=== PATIENT | female | born 1940 | race Caucasian/White ===

== ENCOUNTER 2017-07-18 10:24 | Emergency (ER) | payer MEDICARE, OTHER ==
[~2017-07-18] VITALS: Ht 154.9 cm; Wt 70.3 kg
[~2017-07-18 10:24] MED LIST: ALB6.7R INH; ALBU8.5H12 IH; ALPR-429 PO; AMLO-106 PO; ATOR40TA24 PO; ATR80PT PO; CALC1TAB32 PO; EZET10TA41 PO; FLUT1DIS28 IH; HYOS-49 SL; LORA10CA3 PO; MESA800T3 PO; MONT10TA PO; MONT10TA4 PO; MULT-865 PO; MULT-912 PO; NAPR220C12 PO; PANT40TA65 PO; RANI-324 PO
--- NOTE | 2017-07-18 10:32 | ER Report ---
History and Physical Time Seen By MD: 10:32 HPI/ROS CC: Shortness of breath cough HPI: 77-year-old female with a past medical history of asthma, hypoxia, GERD, Perla 's esophagus presents to the emergency department per POV. Patient has had decreased SaO2 in the 90-92% range on room air is 3 months. She is increased her Advair and rescue inhaler up to 6 times per day. Over the last weeks she has progressively had increased with green mucus productive cough. No blood. She has traveled to [place] and has had more exposure to the public during the [place] season. She initially had fever chills but that is slightly resolved. She denies any nausea vomiting, palpitations, chest pressure but definitely has increased shortness of breath. She does have reflux. She is not seeing a air and water tester. I discussed with her that she is probably having silent aspiration during the night and needs to follow-up with a air and water tester. She will be acquiring a new PCP, Jose, as her PCP is retiring. I discussed with her in length due to her decreasing pulmonary function over the last year she needs to have further evaluation by pulmonology. She just had an echo which showed. OVERALL IMPRESSION: 1. Normal stress echocardiograph with normal left ventricular function systolically at rest with hyperdynamic response to exercise and low probability of ischemia. 2. Grade 1/4 decrease in diastolic function. 3. Trace of mitral insufficiency. 4. A mild amount of tricuspid insufficiency with normal right ventricular systolic pressures at 31 mmHg. Patient upon and in agreement. ROS: 12 point review of systems essentially negative other than what's mentioned in history of present illness. NURSES AND OLD MEDICAL RECORDS: Reviewed PMH: Reviewed SURGICAL HX: Reviewed FAMILY HX: Noncontributory SOCIAL HX: She is lives at home denies smoking alcohol or illicit drugs. VITAL SIGNS: Reviewed CONSTITUTIONAL: 77-year-old female in moderate distress PHYSICAL EXAM: HEENT: Pupils equal round reactive to light and accommodate, EOMI, tympanic membranes pearly white umbo present with good light reflex. Lips dry mucous membranes moist gums nonbleeding uvula midline and rises equally with phonation, oropharynx noninjected, teeth intact. NECK: Neck supple, thyroid not appreciated, anterior and posterior cervical lymphadenopathy not appreciated. Trachea midline and rises equally with phonation. CARDIAC: S1-S2 2/6 systolic murmur 2nd intercostal space right sternal border regular rate rhythm no rubs or gallops. LUNGS: Lungs decreased air movement with inspiratory wheezes with rhonchi bilaterally posteriorly in all persaud. ABDOMEN: Abdomen soft, nondistended, bowel sounds active in all 4 quadrants, no bruits noted, no CVA tenderness. MUSCULOSKELETAL: Strength 5 out of 5 x 4 extremities, no deformities noted. NEUROLOGIC: Patient alert and oriented by 3 Allergies: Coded Allergies: Penicillins (Verified Allergy, Severe, GIVEN IN CHILDHOOD WITH REACTION, BUT PT DOESN'T KNOW WHAT., 05/06/16) Sulfa (Sulfonamide Antibiotics) (Verified Allergy, Severe, HALLUCINATIONS , 05/06/16) shellfish derived (Verified Allergy, Severe, ANAPHYLAXIS, 05/06/16) Uncoded Allergies: HAYFEVER (Allergy, Mild, SINUS CONGESTION, 12/26/14) Home Meds Active Scripts Ipratropium/Albuterol Sulfate (IPRAT-ALBUT 0.5-3(2.5) MG/3 ML) 3 Ml Ampul.neb, 3 ML IH BID Y for SHORTNESS OF BREATH, #1 BOX 1 Refill Prov:LORA FAUST MD 07/18/17 Azithromycin (ZITHROMAX) 250 Mg Tablet, 0 PO QDAY, #6 TAB Prov:LORA FAUST MD 07/18/17 Prednisone 10 Mg Tab (PREDNISONE 10 MG TAB) 10 Mg Tablet, 50 MG PO QDAY, #47 TAB 50 mg by mouth daily for 3 days then 40 mg by mouth daily for 3 days then 30 mg by mouth daily for 3 days then 20 mg by mouth daily for 3 days then 10 mg by mouth daily for 3 days then 5 mg by mouth daily for 3 days. Prov:LORA FAUST MD 07/18/17 Fluticasone/Salmeterol (ADVAIR 250-50 DISKUS) 1 Each Disk.w.dev, 1 EACH IH BID, #3 INH 9 Refills Prov:VIRGINIA URENA MD 06/21/17 Albuterol Sulfate (PROVENTIL HFA) 6.7 Gm Inh, 108 MCG INH PRN for 90 Days, #2 INH 9 Refills 2 puffs every 6 hours prn sob Prov:VIRGINIA URENA MD 06/21/17 Pantoprazole Sodium (PANTOPRAZOLE SODIUM) 40 Mg Tablet.dr, 40 MG PO QDAY, #90 TAB.SR 0 Refills Prov:VIRGINIA URENA MD 06/21/17 Montelukast Sodium (SINGULAIR) 10 Mg Tablet, 1 TAB PO QDAY for 90 Days, #90 TAB 3 Refills Prov:VIRGINIA URENA MD 06/21/17 Ezetimibe (ZETIA) 10 Mg Tablet, 1 TAB PO QDAY, #90 TAB 4 Refills Prov:VIRGINIA URENA MD 05/26/17 Reported Medications Multivitamin (DAILY MULTIPLE VITAMIN) 1 Each Tablet, 1 TAB PO DAILY 02/01/17 Amlodipine Besylate/Benazepril (LOTREL 10-40 MG CAPSULE) 1 Each Capsule, 1 EACH PO QDAY, CAPSULE 02/01/17 Atorvastatin Calcium (LIPITOR) 40 Mg Tablet, 80 MG PO QDAY, TAB 02/01/17 Loratadine (CLARITIN) 10 Mg Capsule, 10 MG PO QDAY, CAPSULE 02/01/17 Mesalamine (ASACOL HD) 800 Mg Tablet., 800 MG PO bid to qid 02/01/17 Discontinued Reported Medications Calcium Carb & Cit/Vitamin D3 (CALCIUM + D3 ER TABLET) 1 Each Tablet.er, 1300 MG PO DAILY 02/01/17 Hx Smoking: No Smoking Status: Never Smoker Exposure to Second Hand Smoke?: No Hx Alcohol Use: Yes Constitutional Vital Sign - Last 24 Hours 07/18/17 07/18/17 07/18/17 07/18/17 10:24 10:29 10:35 10:39 Temp 99.2 Pulse ??? 104 ??? Resp 18 15 B/P (MAP) 138/81 138/81 (100) Pulse Ox 91 91 O2 Delivery Room Air 07/18/17 07/18/17 07/18/17 07/18/17 10:54 11:00 11:09 11:30 Pulse 91 87 Resp 17 14 B/P (MAP) 114/72 (86) 110/80 (90) Pulse Ox 90 89 07/18/17 07/18/17 07/18/17 07/18/17 11:39 11:54 12:00 12:00 Pulse 83 81 88 Resp 21 21 16 Pulse Ox 90 89 O2 Delivery Room Air 07/18/17 07/18/17 07/18/17 07/18/17 12:08 12:38 12:38 12:44 Pulse 82 89 96 Resp 16 16 16 Pulse Ox 89 O2 Delivery Room Air 07/18/17 07/18/17 13:18 13:18 Pulse 98 Resp 16 Pulse Ox 89 O2 Delivery Room Air Medical Decision Making Data Points Result Diagram: 07/18/17 1040 07/18/17 1040 Laboratory Hematology Test 07/18/17 10:40 07/18/17 11:00 Red Blood Count 5.17 M/uL (4.17-5.56) Mean Corpuscular Volume 89.6 fL (80.0-96.0) Mean Corpuscular Hemoglobin 30.9 pg (26.0-33.0) Mean Corpuscular Hemoglobin Concent 34.5 g/dL (32.0-36.0) Red Cell Distribution Width 13.5 % (11.5-14.5) Mean Platelet Volume 9.7 fL (7.2-11.1) Neutrophils (%) (Auto) 64.6 % (39.4-72.5) Lymphocytes (%) (Auto) 14.2 % (17.6-49.6) Monocytes (%) (Auto) 18.5 % (4.1-12.4) Eosinophils (%) (Auto) 1.5 % (0.4-6.7) Basophils (%) (Auto) 1.2 % (0.3-1.4) Nucleated RBC Relative Count (auto) 0.0 /100WBC Neutrophils # (Auto) 5.4 K/uL (2.0-7.4) Lymphocytes # (Auto) 1.2 K/uL (1.3-3.6) Monocytes # (Auto) 1.5 K/uL (0.3-1.0) Eosinophils # (Auto) 0.1 K/uL (0.0-0.5) Basophils # (Auto) 0.1 K/uL (0.0-0.1) Nucleated RBC Absolute Count (auto) 0.00 K/uL Sodium Level 138 mmol/L (137-145) Potassium Level 4.2 mmol/L (3.5-5.0) Chloride Level 103 mmol/L (98-107) Carbon Dioxide Level 23 mmol/L (22-31) Blood Urea Nitrogen 10 mg/dl (7-18) Creatinine 0.70 mg/dl (0.52-1.04) Glomerular Filtration Rate Calc > 60.0 Random Glucose 88 mg/dl (75-110) Calcium Level 9.7 mg/dl (8.4-10.2) Total Bilirubin 1.1 mg/dl (0.2-1.3) Aspartate Amino Transf (AST/SGOT) 35 U/L (0-35) Alanine Aminotransferase (ALT/SGPT) 47 U/L (0-56) Alkaline Phosphatase 98 U/L (0-126) Troponin I < 0.012 ng/ml B-Type Natriuretic Peptide 34 pg/ml (0-100) Total Protein 7.0 gm/dl (6.3-8.2) Albumin 4.1 g/dl (3.5-5.0) Influenza Type A Antigen Negative (NEGATIVE) Influenza Type B Antigen Negative (NEGATIVE) Chemistry Test 07/18/17 10:40 07/18/17 11:00 White Blood Count 8.3 k/uL (4.5-11.0) Red Blood Count 5.17 M/uL (4.17-5.56) Hemoglobin 16.0 g/dL (12.0-16.0) Hematocrit 46.3 % (34.0-47.0) Mean Corpuscular Volume 89.6 fL (80.0-96.0) Mean Corpuscular Hemoglobin 30.9 pg (26.0-33.0) Mean Corpuscular Hemoglobin Concent 34.5 g/dL (32.0-36.0) Red Cell Distribution Width 13.5 % (11.5-14.5) Platelet Count 228 K/uL (150-450) Mean Platelet Volume 9.7 fL (7.2-11.1) Neutrophils (%) (Auto) 64.6 % (39.4-72.5) Lymphocytes (%) (Auto) 14.2 % (17.6-49.6) Monocytes (%) (Auto) 18.5 % (4.1-12.4) Eosinophils (%) (Auto) 1.5 % (0.4-6.7) Basophils (%) (Auto) 1.2 % (0.3-1.4) Nucleated RBC Relative Count (auto) 0.0 /100WBC Neutrophils # (Auto) 5.4 K/uL (2.0-7.4) Lymphocytes # (Auto) 1.2 K/uL (1.3-3.6) Monocytes # (Auto) 1.5 K/uL (0.3-1.0) Eosinophils # (Auto) 0.1 K/uL (0.0-0.5) Basophils # (Auto) 0.1 K/uL (0.0-0.1) Nucleated RBC Absolute Count (auto) 0.00 K/uL Glomerular Filtration Rate Calc > 60.0 Calcium Level 9.7 mg/dl (8.4-10.2) Total Bilirubin 1.1 mg/dl (0.2-1.3) Aspartate Amino Transf (AST/SGOT) 35 U/L (0-35) Alanine Aminotransferase (ALT/SGPT) 47 U/L (0-56) Alkaline Phosphatase 98 U/L (0-126) Troponin I < 0.012 ng/ml B-Type Natriuretic Peptide 34 pg/ml (0-100) Total Protein 7.0 gm/dl (6.3-8.2) Albumin 4.1 g/dl (3.5-5.0) Influenza Type A Antigen Negative (NEGATIVE) Influenza Type B Antigen Negative (NEGATIVE) EKG/Imaging EKG Interpretation Normal sinus rhythm, ventricular rate 90 bpm, FL interval 136 ms, QRS duration 86 ms, QT 358 ms, QTC [address] chest shows no acute pathology. ED Course/Re-evaluation ED Course Patient received DuoNeb treatment with much improvement and also IV Solu- Medrol. CT chest did not show any acute pathology. Reviewing echocardiogram this past month as showing right heart strain. I discussed in length with the patient to follow up both with pulmonary for further evaluation of her pulmonary pathology and also for possible aspiration. Patient will be receiving home DuoNeb treatments with nebulizer. Patient has been with a CO2 of 90-92% but this is her baseline for the last 4-6 months. Patient will not be placed on oxygen at home but will follow up with pulmonology for that evaluation. Patient due to her fragile pulmonary status placed on Descalating dose of steroids and Zithromax. Patient dependent edema. Patient will be given home nebulizer with DuoNeb treatments twice a day when necessary. Re-evaluation Asthma exacerbation, pneumonia, aspiration. Decision to Disposition Date: Jul 18, 2017 Decision to Disposition Time: 13:15 Depart Departure Latest Vital Signs Vital Signs Date Time Temp Pulse Resp B/P (MAP) Pulse Ox O2 Delivery O2 Flow Rate FiO2 07/18/17 13:18 89 Room Air 07/18/17 13:18 98 16 07/18/17 11:30 110/80 (90) 07/18/17 10:29 99.2 Impression: Primary Impression: GERD (gastroesophageal reflux disease) Additional Impressions: Aspiration into airway Hypoxia Condition: Improved Disposition: HOME OR SELF-CARE Referrals: VIRGINIA URENA MD (PCP) New Scripts Ipratropium/Albuterol Sulfate (IPRAT-ALBUT 0.5-3(2.5) MG/3 ML) 3 Ml Ampul.neb 3 ML IH BID Y for SHORTNESS OF BREATH, #1 BOX 1 Refill Prov: LORA FAUST MD 07/18/17 Azithromycin (ZITHROMAX) 250 Mg Tablet 0 PO QDAY, #6 TAB Prov: LORA FAUST MD 07/18/17 Prednisone 10 Mg Tab (PREDNISONE 10 MG TAB) 10 Mg Tablet 50 MG PO QDAY, #47 TAB 50 mg by mouth daily for 3 days then 40 mg by mouth daily for 3 days then 30 mg by mouth daily for 3 days then 20 mg by mouth daily for 3 days then 10 mg by mouth daily for 3 days then 5 mg by mouth daily for 3 days. Prov: LORA FAUST MD 07/18/17 Departure Forms: ER Transition Record, Home Oxygen, Nebulizer RX, Durable Medical Equipment-Oxygen: Nebulizer Reason for Use/Diagnosis: COPD Start Date of the Order: Jul 18, 2017 Route of Administration (if applicable): Other Duration Home O2 Required: 6 Duration Units: Months Room Air Oxygen Saturation: 90 Medications Reconciliation, Patient Portal Information Patient Instructions: Hypoxia (ED) Additional Instructions: Follow-up with a air and water tester as planned. He had been given a nebulizer for home treatment. Proventil this is a medication utilizing JOCELINE nebulizer. Do not use both at the same time. You also had been given an antibiotic take as directed. I and the staff wanted to thank you for allowing us to take care of your needs today in the emergency department at [facility]. We have tried to answer all of your questions and concerns. Please feel free to return to the emergency department for any further concerns or unanswered questions. Problem Qualifiers Primary Impression: GERD (gastroesophageal reflux disease) Esophagitis presence: with esophagitis Qualified Codes: K21.0 - Gastro- esophageal reflux disease with esophagitis Additional Impressions: Aspiration into airway Encounter type: initial encounter Qualified Codes: T17.908A - Unspecified foreign body in respiratory tract, part unspecified causing other injury, initial encounter LORA FAUST MD Jul 18, 2017 10:32
[2017-07-18] MEDS ORDERED: NS(*) 0.9% 1000 ML BAG 1,000 ML IV ONE (10:59)
[2017-07-18] MEDS: ALBUTEROL/IPRATROPIUM 3 ML NEB NEB SCH ×3 (11:00→13:20)
[2017-07-18] MEDS ORDERED: cefTRIAXone 1 GM VIAL IVP ONE (11:00)
[2017-07-18] MEDS ORDERED: methylPREDNIS SUCC 125 MG/2ML IVP ONE (11:00)
[2017-07-18] MEDS ORDERED: AZITHROMYCIN 250 MG TAB PO ONE (11:00)
[2017-07-18] MEDS ORDERED: IOPAMIDOL 76% 75 ML INFUS BTL 0 ML ONE (11:12)
[2017-07-18] MEDS ORDERED: NS 0.9% 50 ML VIAL 0 ML ONE (11:12)
[2017-07-18 11:19] LABS: PLATELET COUNT, AUTOMATED 228 K/uL (150-450)
--- NOTE | 2017-07-18 11:34 | EKG ---
FACILITY: [facility] PATIENT NAME: THIAGO VAUGHN : [id number] MR: [id number] V: [id number] EXAM DATE: ORDERING PHYSICIAN: LORA FAUST TECHNOLOGIST: SHELL Test Reason : SOB Blood Pressure : / mmHG Vent. Rate : 090 BPM Atrial Rate : 090 BPM P-R Int : 136 ms QRS Dur : 086 ms QT Int : 358 ms P-R-T Axes : 067 069 068 degrees QTc Int : 437 ms Normal sinus rhythm Normal ECG No previous ECGs available Confirmed by ETHAN MUNOZ ([id number]) on 07/18/2017 3:05:15 PM Referred By: GOVIND Confirmed By:ETHAN MUNOZ
--- NOTE | 2017-07-18 12:53 | RADIOLOGY IMAGING REPORT ---
FACILITY: [facility] PATIENT NAME: Candelaria Higgins : 1940 MR: [id number] V: [id number] EXAM DATE: ORDERING PHYSICIAN: LORA FAUST TECHNOLOGIST: Location: [facility] Patient: Candelaria Higgins : 1940 Visit/Account:[id number] Date of Sevice: 07/18/2017 INDICATION: Shortness of breath. DATE: 07/18/2017 12:19 PM. TECHNIQUE: CHEST W/O CONTRAST. Noncontrast axial CT imaging was performed through the chest with sagi ttal and coronal reformats. COMPARISON: None FINDINGS: No effusion, consolidation, or pneumothorax. The thyroid is incompletely imaged. No thoracic inlet adenopathy. Heart size is normal. There is prominent atherosclerosis within the LAD. Central pulmonary arteries a re mildly prominent. Extensive aortic arch atherosclerosis. No mediastinal or hilar adenopathy. Breast tissue is incompletely imaged. No acute osseous abnormality. The upper abdomen is unremarkable. IMPRESSION: No acute findings in the chest. Report Dictated By: Angelica Nicholas MD at 07/18/2017 12:19 PM Report E-Signed By: Angelica Nicholas MD at 07/18/2017 12:48 PM WSN:[id number]
[2017-07-18] MEDS ORDERED: PRED-1 PO (13:13)
[2017-07-18] MEDS ORDERED: AZIT-1 PO (13:13)
[2017-07-18] MEDS ORDERED: IPRA3AMP21 IH (13:13)
[2017-07-18 13:29] VITALS: BP 119/53
== END 2017-07-18 13:45 | disposition home or self-care (01) ==
LOC: ER 10:41
DX: K21.0 Gastro-esophageal reflux disease with esophagitis (principal); T17.908A Unspecified foreign body in respiratory tract, part unspecified causing other injury, initial encounter; R09.02 Hypoxemia
CPT/HCPCS: 71250; 83880; 84484; 85025; 87502; 93005; 94640; 96361; 96374; 96375; 99284; J0696; J2930; J7030; J7620; Q0144; 82040; 82247; 82310; 82374; 82435; 82565; 82947; 84075; 84132; 84155; 84295; 84450; 84460; 84520; J7050; Q9967

== ENCOUNTER → 2017-08-26 | Outpatient (CLI) | payer MEDICARE, OTHER ==
[~2017-08-26] MED LIST changes: +ATOR-1 PO; +AZIT-1 PO; +FLUT16SP19 NS; +IPRA3AMP21 IH; +LACT1CAP6 PO; +PRED-1 PO
== END ==
LOC: RESP 19:49
PROVIDERS: ATTEND Family Medicine
DX: G47.33 Obstructive sleep apnea (adult) (pediatric) (principal); G47.36 Sleep related hypoventilation in conditions classified elsewhere; E66.9 Obesity, unspecified

== ENCOUNTER → 2018-01-10 | Outpatient (CLI) | payer MEDICARE, OTHER ==
[~2018-01-10] MED LIST changes: +ATOR40TA69 PO; -RANI-324 PO; +RANI-366 PO
--- NOTE | 2018-01-10 17:01 | RADIOLOGY IMAGING REPORT ---
FACILITY: [facility] [place] PATIENT NAME: THIAGO VAUGHN : [id number] MR: [id number] V: [id number] EXAM DATE: ORDERING PHYSICIAN: VINNY VALENTE TECHNOLOGIST: Meliza Kevin PROCEDURE:BILATERAL DIGITAL SCREENING MAMMOGRAM WITH CAD ASSISTED INTERPRETATION & 3D TOMOSYNTHESIS COMPARISON:Prior mammograms 01/08/17, 12/27/15, 12/24/14, 12/06/13, 11/23/13, 11/22/12. INDICATIONS:SCREENING FINDINGS: Moderately heterogeneous fibroglandular tissue is seen throughout the breasts. The parenchymal pattern has remained stable allowing for difference in mammographic technique & patient positioning. There is no evidence of malignant appearing mass, malignant appearing calcifications or other secondary sign of malignancy in either breast. DIAGNOSTIC CATEGORY 1--NEGATIVE. RECOMMENDATIONS: ROUTINE MAMMOGRAM AND CLINICAL EVALUATION. IMPRESSION: BIRADS 1: Negative. No significant abnormality is seen. Dictated by: Danna Uriostegui M.D. on 01/10/2018 at 16:18 Transcribed by: THONY on 01/10/2018 at 16:22 Approved by: Danna Uriostegui M.D. on 01/10/2018 at 16:59 [facility]
== END ==
LOC: MAMO 14:26
PROVIDERS: ATTEND Family Medicine
DX: Z12.31 Encounter for screening mammogram for malignant neoplasm of breast (principal)
CPT/HCPCS: 77063; 77067

== ENCOUNTER → 2018-05-25 | Outpatient (CLI) | payer MEDICARE, OTHER ==
[~2018-05-25] MED LIST changes: +IPRA3AMP10 IH; -IPRA3AMP21 IH
[2018-05-25 10:08] LABS: PLATELET COUNT, AUTOMATED 276 K/uL (150-450)
== END ==
LOC: LAB 09:44
PROVIDERS: ATTEND Family Medicine
DX: I10 Essential (primary) hypertension (principal)
CPT/HCPCS: 36415; 82040; 82247; 82310; 82374; 82435; 82565; 82947; 84075; 84132; 84155; 84295; 84450; 84460; 84520; 85025

== ENCOUNTER 2018-06-22 01:44 | Day surgery (SDC) | payer MEDICARE, OTHER ==
[~2018-06-22] VITALS: Ht 154.9 cm; Wt 73.5 kg
[2018-06-22] MEDS ORDERED: LIDOCAINE MPF 1% 5 ML VIAL ONE (10:56)
[2018-06-22] MEDS ORDERED: PROPOFOL EMUL(*) 10MG/ML 20 ML 40 ML ONE (10:56)
[2018-06-22] MEDS ORDERED: KETAMINE HCL-NS 50 MG/5 ML SYR ONE (10:57)
[2018-06-22] MEDS ORDERED: LIDOCAINE/SOD BICARB 8.4% SYR ID ONE (11:10)
[2018-06-22] MEDS ORDERED: NORMOSOL R SOLN(*) 1000 ML BAG 1,000 ML IV PRN (11:10)
[2018-06-22 11:46] VITALS: BP 144/76
[2018-06-22 12:28] VITALS: BP 122/67
--- NOTE | 2018-06-22 12:40 | Post Operative Progress Note ---
Post Operative Progress Note Date: Jun 22, 2018 Time: 12:34 Surgeon: Elliott Bhatt MD, FACS Cut Out Press Operator: None Anesthesia: MAC Pre-Op Diagnosis: GERD with increasing symptoms h/o Perla's Esophagus Post-Op Diagnosis: Same Findings: normal duodenum 3 gastric polyps <1cm on thin stalks Z-Line at 35 cm with 1/4 circumference irregular multiple which plaques/flat polyps distal and mid-esophagus Procedure(s): EGD with multiple biopsies Description To endoscopy room. Patient asked to turn onto left side. Sedation administered. Scope passed easily into her esophagus and navigated to the 2nd portion of the duodenum. Findings above were noted. Cold forceps biopsies performed for all specimens. Multiple samples were obtained at both the GE Junction and mid-esophagus. She was taken to PACU in good condition. She will have an UGI study on Wednesday and follow-up with Dr. Lakhani next for review of her pathology and UGI. Specimen Removed:(May be N/A): 1 - Gastric Fundus Polyp 2 - Gastric Cardia Polyp 3 - Gastric Fundus Polyp #2 4 - GE Junction Biopsies 5 - Mid-Esophagus Biopsies Complications: None Fluids: 600 Estimated Blood Loss: 5ml ELLIOTT BHATT MD Jun 22, 2018 12:40
[2018-06-22 13:00] VITALS: BP 144/75
[2018-06-22 13:06] VITALS: BP 144/73
[2018-06-22 13:07] VITALS: BP 141/76
== END 2018-06-22 13:30 | disposition home or self-care (01) ==
LOC: OR 01:44
PROVIDERS: ATTEND Surgery
DX: K20.0 Eosinophilic esophagitis (principal)
CPT/HCPCS: 43239; 88305; 88313; 88344; J2001; J2704; J3490

== ENCOUNTER → 2018-06-28 | Outpatient (CLI) | payer MEDICARE, OTHER ==
[~2018-06-28] MED LIST changes: +BARIUM SULFATE 176 GM BTL PO ONE; +BARIUM SULFATE 340 GM POWD ONE
--- NOTE | 2018-06-28 14:20 | RADIOLOGY IMAGING REPORT ---
FACILITY: [facility] PATIENT NAME: Candelaria Higgins : 1940 MR: [id number] V: [id number] EXAM DATE: ORDERING PHYSICIAN: ETHAN BURGOS TECHNOLOGIST: Location: [facility] [place] Patient: Candelaria Higgins : 1940 Visit/Account:[id number] Date of Sevice: 06/28/2018 Exam type: UPPER GI SERIES W/O AIR History: Perla's esophagus, GERD, difficulty swallowing pills Comparison: November 28, 2012. Findings: Double contrast upper GI series was performed with thick and thin barium.. There is a small hiatal h ernia with a large amount of gastroesophageal reflux. No significant esophageal narrowing was identi fied and no evidence of mucosal erosion. No abnormality of the stomach or duodenal bulb was seen. T here is an incidental diverticulum projecting from the second portion of the duodenum. The fluorosco py dose area product was 806.13 micro-Bowman per meter squared IMPRESSION: 1. Small hiatal hernia with a large amount of gastroesophageal reflux. No significant esophageal na rrowing or mucosal erosion identified.. Incidental diverticulum extends from the second portion of the duodenum Report Dictated By: Danna Uriostegui MD at 06/28/2018 2:13 PM Report E-Signed By: Danna Uriostegui MD at 06/28/2018 2:17 PM WSN:[id number]
== END ==
LOC: RAD 00:31
PROVIDERS: ATTEND Surgery
DX: K44.9 Diaphragmatic hernia without obstruction or gangrene (principal); K57.10 Diverticulosis of small intestine without perforation or abscess without bleeding
CPT/HCPCS: 74240

== ENCOUNTER 2018-07-19 16:51 | Emergency (ER) | payer MEDICARE, OTHER ==
[~2018-07-19 16:51] MED LIST changes: -BARIUM SULFATE 176 GM BTL PO ONE; -BARIUM SULFATE 340 GM POWD ONE
--- NOTE | 2018-07-19 17:05 | ER Report ---
History and Physical Time Seen By MD: 17:04 (NATALIIA GUERRA MD) HPI/ROS 78-year-old female presents to the emergency department complaining of pain in her right shoulder and elbow after a fall from standing onto concrete. Also states that she has pain at her right scapula. She did not strike her head and no loss of consciousness. She does not take any anticoagulant medications.No pain in her neck. No paresthesias. No back pain. No abdominal pain. Remainder of the 14 system rev: Yes (NATALIIA GUERRA MD) Allergies: Coded Allergies: Penicillins (Verified Allergy, Severe, GIVEN IN CHILDHOOD WITH REACTION, BUT PT DOESN'T KNOW WHAT., 05/06/16) Sulfa (Sulfonamide Antibiotics) (Verified Allergy, Severe, HALLUCINATIONS, 05/06/16) shellfish derived (Verified Allergy, Severe, ANAPHYLAXIS, 05/06/16) Uncoded Allergies: HAYFEVER (Allergy, Mild, SINUS CONGESTION, 12/26/14) Home Meds Active Scripts Montelukast Sodium (SINGULAIR) 10 Mg Tablet, 1 TAB PO QDAY for 90 Days, #90 TAB 4 Refills Prov:VINNY VALENTE MD 07/04/18 Atorvastatin Calcium (ATORVASTATIN CALCIUM) 40 Mg Tablet, 1 TAB PO QDAY for 90 Days, #90 TAB 4 Refills Prov:VINNY VALENTE MD 01/06/18 Ipratropium/Albuterol Sulfate (IPRAT-ALBUT 0.5-3(2.5) MG/3 ML) 3 Ml Ampul.neb, 3 ML IH BID PRN for SHORTNESS OF BREATH, #1 BOX 1 Refill Prov:VINNY VALENTE MD 11/16/17 Pantoprazole Sodium (PANTOPRAZOLE SODIUM) 40 Mg Tablet., 1 TAB PO QDAY for 90 Days, #90 TAB 4 Refills Prov:VINNY VALENTE MD 10/06/17 Mesalamine (ASACOL HD) 800 Mg Tablet., 1 TAB PO bid to qid for 90 Days, #180 TAB 2 Refills Prov:VINNY VALENTE MD 09/24/17 Fluticasone Prop 50 Mcg Ns (FLONASE 50 MCG NS) 16 Gm [place].susp, 2 SPRAYS NS QDAY for 30 Days, #1 BOT 3 Refills Prov:VINNY VALENTE MD 08/20/17 Amlodipine Besylate/Benazepril (LOTREL 10-40 MG CAPSULE) 1 Each Capsule, 1 EACH PO QDAY for 90 Days, #90 CAPSULE 4 Refills Prov:VINNY VALENTE MD 08/18/17 Fluticasone/Salmeterol (ADVAIR 250-50 DISKUS) 1 Each Disk.w.dev, 1 EACH IH BID, #3 INH 9 Refills Prov:VIRGINIA URENA MD 06/21/17 Albuterol Sulfate (PROVENTIL HFA) 6.7 Gm Inh, 108 MCG INH PRN for 90 Days, #2 INH 9 Refills 2 puffs every 6 hours prn sob Prov:VIRGIINA URENA MD 06/21/17 Reported Medications Lactobacillus Combination No.4 (PROBIOTIC) 1 Each Capsule, 1 EACH PO DAILY, CAPSULE 07/22/17 Multivitamin (DAILY MULTIPLE VITAMIN) 1 Each Tablet, 1 TAB PO DAILY 02/01/17 Loratadine (CLARITIN) 10 Mg Capsule, 10 MG PO PRN, CAPSULE 02/01/17 Reviewed Nurses Notes: Yes (NATALIIA GUERRA MD) Hx Smoking: No Smoking Status: Never Smoker Exposure to Second Hand Smoke?: No Hx Substance Use Disorder: No Hx Alcohol Use: Yes (NATALIIA GUERRA MD) Constitutional Vital Sign - Last 24 Hours 07/19/18 07/19/18 07/19/18 07/19/18 16:51 16:59 17:51 18:21 Temp 98.0 Pulse 76 72 77 Resp 20 B/P (MAP) 175/94 (121) Pulse Ox 92 95 94 O2 Delivery Room Air (DAVID VALLES MD) Physical Exam General Appearance: The patient is alert, has no immediate need for airway pr otection and no current signs of toxicity. Eyes: Pupils equal and round no injection. Respiratory: Chest is non tender, lungs are clear to auscultation. Cardiac: regular rate and rhythm Gastrointestinal: Abdomen is soft and non tender, no masses, bowel sounds normal. Musculoskeletal: Neck: Neck is supple and non tender. No midline c-spine TTP Extremities: TTP at the right shoulder and right elbow. Pain limits exam. N/V in tact. Mild TTP of the right scapula. Skin: No rashes or lesions. (NATALIIA GUERRA MD) Medical Decision Making Data Points Result Diagram: 07/19/18 1756 Laboratory Hematology Test 07/19/18 00:00 07/19/18 17:56 Sodium Level 137 mmol/L (137-145) Potassium Level 4.5 mmol/L (3.5-5.0) Chloride Level 107 mmol/L (98-107) Carbon Dioxide Level 20 mmol/L (22-31) Blood Urea Nitrogen 13 mg/dl (7-18) Creatinine 0.60 mg/dl (0.52-1.04) Glomerular Filtration Rate Calc > 60.0 Random Glucose 117 mg/dl (75-110) Calcium Level 9.4 mg/dl (8.4-10.2) Total Bilirubin 0.9 mg/dl (0.2-1.3) Aspartate Amino Transf (AST/SGOT) 40 U/L (0-35) Alanine Aminotransferase (ALT/SGPT) 37 U/L (0-56) Alkaline Phosphatase 65 U/L (0-126) Total Protein 7.2 g/dl (6.3-8.2) Albumin 4.1 g/dl (3.5-5.0) Chemistry Test 07/19/18 00:00 07/19/18 17:56 Glomerular Filtration Rate Calc > 60.0 Calcium Level 9.4 mg/dl (8.4-10.2) Total Bilirubin 0.9 mg/dl (0.2-1.3) Aspartate Amino Transf (AST/SGOT) 40 U/L (0-35) Alanine Aminotransferase (ALT/SGPT) 37 U/L (0-56) Alkaline Phosphatase 65 U/L (0-126) Total Protein 7.2 g/dl (6.3-8.2) Albumin 4.1 g/dl (3.5-5.0) (DAVID VALLES MD) EKG/Imaging Imaging [place] [facility] [place] NAME: Candelaria Higgins : 1940 MR: [id number] V: [id number] EXAM DATE: ORDERING PHYSICIAN: NATALIIA GUERRA TECHNOLOGIST: Location: [facility] [place] Patient: Candelaria Higgins : 1940 Visit/Account:[id number] Date of Sevice: 07/19/2018 EXAMINATION: Right shoulder 2 views. HISTORY: Fall from standing. COMPARISON: None FINDINGS: Anterior right glenohumeral dislocation. The humeral head is displaced anterior to the glenoid and inferior to the coracoid process. No visualized fracture about the right shoulder. Normal alignment at the acromioclavicular joint. The right clavicle appears intact. IMPRESSION: Anterior right glenohumeral dislocation, without evidence of fracture. Report Dictated By: Franck Hubbard MD at 07/19/2018 6:51 PM Report E-Signed By: Franck Hubbard MD at 07/19/2018 6:53 PM WSN:[id number] [place] [facility] [place]IENT NAME: Candelaria Higgins : 1940 MR: [id number] V: [id number] EXAM DATE: ORDERING PHYSICIAN: NATALIIA GUERRA TECHNOLOGIST: Location: [facility] [place] Patient: Candelaria Higgins : 1940 Visit/Account:[id number] Date of Sevice: 07/19/2018 EXAMINATION: Right wrist 2 views Right hand 2 views HISTORY: Fall from standing. COMPARISON: None. FINDINGS: No evidence of acute fracture or dislocation about the right wrist. Normal alignment. Mild degenerative changes at the STT and first CMC joints with joint space narrowing. No evidence of acute fracture or dislocation about the right hand. Normal alignment. Joint spaces are preserved. Soft tissues are radiographically unremarkable. IMPRESSION: 1. No acute osseous findings in the right wrist or hand. 2. 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 Report Dictated By: Franck Hubbard MD at 07/19/2018 6:54 PM Report E-Signed By: Franck Hubbard MD at 07/19/2018 6:57 PM WSN:[id number] [place] [facility] [place]IENT NAME: Candelaria Higgins : 1940 MR: [id number] V: [id number] EXAM DATE: [id number] ORDERING PHYSICIAN: NATALIIA GUERRA TECHNOLOGIST: Location: [facility] [place] Patient: Candelaria Higgins : 1940 Visit/Account:[id number] Date of Sevice: 07/19/2018 EXAMINATION: Right elbow 2 views HISTORY: Fall from standing. COMPARISON: None. FINDINGS: Bones of the right elbow demonstrate normal alignment. No evidence of fracture or dislocation. Joint space is preserved. Soft tissues are radiographically unremarkable. No significant elbow joint effusion is evident. IMPRESSION: Negative right elbow. Report Dictated By: Franck Hubbard MD at 07/19/2018 6:53 PM Report E-Signed By: Franck Hubbard MD at 07/19/2018 6:54 PM WSN:[id number] [place]ACILITY: [facility] [place]IENT NAME: Candelaria Higgins : 1940 MR: [id number] V: [id number] EXAM DATE: ORDERING PHYSICIAN: DAVID VALLES TECHNOLOGIST: Location: [facility] [place] Patient: Candelaria Higgins : 1940 Visit/Account:[id number] Date of Sevice: 07/19/2018 Examination: SHOULDER MIN 2 VIEWS RIGHT Comparison: Earlier the same day. History: Right shoulder dislocation postreduction. Findings: Right glenohumeral joint alignment is within normal limits. Acromioclavicular and coracoclavicular alignment is maintained. No fracture is identified. No evidence of acute disease in the visualized thorax. IMPRESSION: Improved postreduction alignment of the right glenohumeral joint. Report Dictated By: Isael Garland MD at 07/19/2018 7:47 PM Report E-Signed By: Isael Garland MD at 07/19/2018 7:49 PM WSN:[id number] (DAVID VALLES MD) ED Course/Re-evaluation ED Course 07/19/2018 7:30:16 pm Procedure: Procedural sedation. A pre-sedation evaluation was completed on the patient at 1900. Patient is an appropriate candidate for procedural sedation. The risks of the sedation were discussed with the patient. A time out was completed. The patient was sedated with 65mg of propofol and 95 mg of ketamine. The patient was monitored with continuous pulse oximetry and momd teacher. There were no complications and no significant hypoxemia. I remained at the bedside for the sedation. The total time I spent in the procedural sedation was 30 minutes. Procedure: Dislocation reduction: The right shoulder was reduced in the usual fashion without complications. Post reduction the patient's neurovascular exam is normal. Post reduction x-ray demonstrates reduction of the joint to the anatomic position. The procedure was performed by myself. 07/19/2018 8:04:26 pm patient improved after reduction of right shoulder. X-ray shows improved glenohumeral alignment. Patient has no other complaints of pain at this time. Decision to Disposition Date: Jul 19, 2018 Decision to Disposition Time: 20:07 Turned Over Accepted care of patient at 7 PM. Patient with a right shoulder dislocation. Awaiting results of x-rays. Plan will likely be procedural sedation followed by closed reduction of right shoulder dislocation. (DAVID VLALES MD) Depart Departure Latest Vital Signs Vital Signs Date Time Temp Pulse Resp B/P (MAP) Pulse Ox O2 Delivery O2 Flow Rate FiO2 07/19/18 18:21 77 94 07/19/18 16:59 175/94 (121) 07/19/18 16:51 98.0 20 Room Air (DAVID VALLES MD) Impression: Primary Impression: Shoulder joint dislocation Condition: Improved Disposition: HOME OR SELF-CARE Referrals: VINNY VALENTE MD (PCP) [facility] Call tomorrow to schedule a follow-up appointment in the next 1-2 weeks for reevaluation of your shoulder dislocation Patient Instructions: How to Use a Sling (GEN), Shoulder Dislocation (ED), Shoulder Dislocation Exercises (GEN) Additional Instructions: You may use Motrin or Tylenol as directed for pain. Wear your sling for the next 48 hours then discontinue and start gentle range of motion exercises. Avoid carrying anything heavier than 10 pounds the right arm until cleared by orthopedics. Call to schedule a follow-up appointment with orthopedics in the next 1-2 weeks for reevaluation of your right shoulder dislocation and physical therapy NATALIIA GUERRA MD Jul 19, 2018 17:04 DAVID VALLES MD Jul 19, 2018 19:33
[2018-07-19] MEDS ORDERED: ONDANSETRON 4 MG/2 ML VIAL IVP ONE ×2 (17:15→18:40)
[2018-07-19] MEDS ORDERED: MORPHINE 4 MG/ML SDV IVP ONE (17:15)
[2018-07-19] MEDS ORDERED: HYDROMORPHONE HCL 1 MG/ML SYRINGE IVP ONE (17:45)
[2018-07-19] MEDS ORDERED: IOPAMIDOL 76% 75 ML INFUS BTL 0 ML ONE (17:58)
[2018-07-19] MEDS ORDERED: KETAMINE HCL 500 MG/5 ML VIAL IVP ONE (18:40)
[2018-07-19] MEDS ORDERED: PROPOFOL EMUL 10MG/ML 20 ML VL IVP ONE (18:40)
--- NOTE | 2018-07-19 18:57 | RADIOLOGY IMAGING REPORT ---
FACILITY: [facility] PATIENT NAME: Candelaria Higgins : 1940 MR: [id number] V: [id number] EXAM DATE: ORDERING PHYSICIAN: NATALIIA GUERRA TECHNOLOGIST: Location: [facility] Patient: Candelaria Higgins : 1940 Visit/Account:[id number] Date of Sevice: 07/19/2018 EXAMINATION: Right shoulder 2 views. HISTORY: Fall from standing. COMPARISON: None FINDINGS: Anterior right glenohumeral dislocation. The humeral head is displaced anterior to the glenoid and in ferior to the coracoid process. No visualized fracture about the right shoulder. Normal alignment at the acromioclavicular joint. The right clavicle appears intact. IMPRESSION: Anterior right glenohumeral dislocation, without evidence of fracture. Report Dictated By: Franck Hubbard MD at 07/19/2018 6:51 PM Report E-Signed By: Franck Hubbard MD at 07/19/2018 6:53 PM WSN:[id number]
--- NOTE | 2018-07-19 18:57 | RADIOLOGY IMAGING REPORT ---
FACILITY: [facility] PATIENT NAME: Candelaria Higgins : 1940 MR: [id number] V: [id number] EXAM DATE: ORDERING PHYSICIAN: NATALIIA GUERRA TECHNOLOGIST: Location: [facility] Patient: Candelaria Higgins : 1940 Visit/Account:[id number] Date of Sevice: 07/19/2018 EXAMINATION: Right elbow 2 views HISTORY: Fall from standing. COMPARISON: None. FINDINGS: Bones of the right elbow demonstrate normal alignment. No evidence of fracture or dislocation. Joint space is preserved. Soft tissues are radiographically unremarkable. No significant elbow joint effusi on is evident. IMPRESSION: Negative right elbow. Report Dictated By: Franck Hubbard MD at 07/19/2018 6:53 PM Report E-Signed By: Franck Hubbard MD at 07/19/2018 6:54 PM WSN:[id number]
--- NOTE | 2018-07-19 19:00 | RADIOLOGY IMAGING REPORT ---
FACILITY: [facility] PATIENT NAME: Candelaria Higgins : 1940 MR: [id number] V: [id number] EXAM DATE: ORDERING PHYSICIAN: NATALIIA GUERRA TECHNOLOGIST: Location: [facility] - [place] Patient: Candelaria Higgins : 1940 Visit/Account:[id number] Date of Sevice: 07/19/2018 EXAMINATION: Right wrist 2 views Right hand 2 views HISTORY: Fall from standing. COMPARISON: None. FINDINGS: No evidence of acute fracture or dislocation about the right wrist. Normal alignment. Mild degenerat dev changes at the STT and first CMC joints with joint space narrowing. No evidence of acute fracture or dislocation about the right hand. Normal alignment. Joint spaces a re preserved. Soft tissues are radiographically unremarkable. IMPRESSION: 1. No acute osseous findings in the right wrist or hand. 2. 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 Report Dictated By: Franck Hubbard MD at 07/19/2018 6:54 PM Report E-Signed By: Franck Hubbard MD at 07/19/2018 6:57 PM WSN:[id number]
--- NOTE | 2018-07-19 19:01 | RADIOLOGY IMAGING REPORT ---
FACILITY: [facility] PATIENT NAME: Candelaria Higgins : 1940 MR: [id number] V: [id number] EXAM DATE: ORDERING PHYSICIAN: NATALIIA GUERRA TECHNOLOGIST: Location: [facility] [place] Patient: Candelaria Higgins : 1940 Visit/Account:[id number] Date of Sevice: 07/19/2018 EXAMINATION: Right wrist 2 views Right hand 2 views HISTORY: Fall from standing. COMPARISON: None. FINDINGS: No evidence of acute fracture or dislocation about the right wrist. Normal alignment. Mild degenerat dev changes at the STT and first CMC joints with joint space narrowing. No evidence of acute fracture or dislocation about the right hand. Normal alignment. Joint spaces a re preserved. Soft tissues are radiographically unremarkable. IMPRESSION: 1. No acute osseous findings in the right wrist or hand. 2. 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 Report Dictated By: Franck Hubbard MD at 07/19/2018 6:54 PM Report E-Signed By: Franck Hubbard MD at 07/19/2018 6:57 PM WSN:[id number]
--- NOTE | 2018-07-19 19:53 | RADIOLOGY IMAGING REPORT ---
FACILITY: PATIENT NAME: Candelaria Higgins : 1940 MR: [id number] V: [id number] EXAM DATE: ORDERING PHYSICIAN: DAVID VALLES TECHNOLOG[place]: [place] [facility] [place] Cand[place] : 1940 Visit/Account:[id number] Date of Sevice: 07/19/2018 Examination: SHOULDER MIN 2 VIEWS RIGHT Comparison: Earlier the same day. History: Right shoulder dislocation postreduction. Findings: Right glenohumeral joint alignment is within normal limits. Acromioclavicular and coracocl avicular alignment is maintained. No fracture is identified. No evidence of acute disease in the vi sualized thorax. IMPRESSION: Improved postreduction alignment of the right glenohumeral joint. Report Dictated By: Isael Garland MD at 07/19/2018 7:47 PM Report E-Signed By: Isael Garland MD at 07/19/2018 7:49 PM WSN:[email or web address]
[2018-07-19 20:15] VITALS: BP 137/81
== END 2018-07-19 20:20 | disposition home or self-care (01) ==
LOC: ER 17:07
DX: S43.004A Unspecified dislocation of right shoulder joint, initial encounter (principal); W18.30XA Fall on same level, unspecified, initial encounter
CPT/HCPCS: 23650; 36415; 73030; 73070; 73100; 73120; 96374; 96375; 99152; 99153; 99285; A4565; J1170; J2270; J2405; 82040; 82247; 82310; 82374; 82435; 82565; 82947; 84075; 84132; 84155; 84295; 84450; 84460; 84520; Q9967

== ENCOUNTER → 2018-09-03 | Outpatient (CLI) | payer MEDICARE, OTHER | LOC: RESP 20:00 | PROVIDERS: ATTEND Family Medicine | DX: G47.33 Obstructive sleep apnea (adult) (pediatric) (principal); G47.36 Sleep related hypoventilation in conditions classified elsewhere ==

== ENCOUNTER → 2019-01-20 | Outpatient (CLI) | payer MEDICARE, OTHER ==
[~2019-01-20] MED LIST changes: -RANI-366 PO; +RANI-54 PO
--- NOTE | 2019-01-20 15:46 | RADIOLOGY IMAGING REPORT ---
FACILITY: [facility] - [place] PATIENT NAME: THIAGO VAUGHN : [id number] MR: [id number] V: [id number] EXAM DATE: ORDERING PHYSICIAN: VINNY VALENTE TECHNOLOGIST: Meliza Kevin PROCEDURE: BILATERAL DIGITAL SCREENING MAMMOGRAM WITH CAD ASSISTED INTERPRETATION & 3D TOMOSYNTHESIS. REASON FOR STUDY: Screening. FAMILY HISTORY OF BREAST CANCER: None. BREAST PROCEDURES/TREATMENTS: Benign surgical biopsy of the Right breast. COMPARISON: 01/10/18, 01/08/17, 12/27/15, 12/24/14, 12/06/13, 11/23/13. VIEWS OBTAINED: Bilateral 2D & 3D full field CC & MLO projections. BREAST DENSITY: The breasts are heterogeneously dense which can obscure small masses. MAMMOGRAM FINDINGS: The parenchymal pattern has remained stable allowing for difference in mammographic technique & patient positioning. IMPRESSION: BIRADS 1: Negative. DIAGNOSTIC CATEGORY 1--NEGATIVE. RECOMMENDATIONS: ROUTINE MAMMOGRAM AND CLINICAL EVALUATION. Dictated by: Danna Uriostegui M.D. on 01/20/2019 at 15:14 Transcribed by: THONY on 01/20/2019 at 15:24 Approved by: Danna Uriostegui M.D. on 01/20/2019 at 15:43 [facility]
== END ==
LOC: MAMO 00:43
PROVIDERS: ATTEND Family Medicine
DX: Z12.31 Encounter for screening mammogram for malignant neoplasm of breast (principal)
CPT/HCPCS: 77063; 77067